=== PATIENT | male | born 1960 | race Asian ===

== ENCOUNTER 2022-12-11 15:57 | Inpatient (IN) | payer OTHER ==
[2022-12-11 17:52] LABS: BASO % 1.1 % (0-2.0); HEMATOCRIT 44.3 % (35.4-49); HEMOGLOBIN 15.2 GM/dL (11.7-16.9); LYMPH % 19.6 % (8-40); MCH 30.2 pg (25.7-33.7); MCHC 34.4 g/dl (32.0-35.9); MEAN CELL VOLUME 87.8 fl (80-96); MEAN PLT VOLUME 7.4 fl (7.5-11.1); MONO % 14.7 % (3.8-10.2); NEUT % 61.6 % (42.8-82.8); PLATELET COUNT 222 10^3/uL (134-434); RBC 5.04 M/mm3 (4.00-5.60); RDW 13.1 % (11.9-15.9); WHITE BLOOD COUNT 7.2 K/mm3 (4.0-10.0)
[2022-12-11 18:02] LABS: INR 1.05 (0.83-1.09); PROTHROMBIN TIME (PATIENT) 12.2 SEC (9.7-13.0)
[2022-12-11 18:05] LABS: ACTIVATED PTT 35.3 SECONDS (25.2-36.5)
[2022-12-11 18:11] LABS: POTASSIUM 3.6 mmol/L (3.5-5.1)
[2022-12-11 18:12] LABS: CALCIUM 8.7 mg/dL (8.5-10.1)
[2022-12-11 18:14] LABS: BLOOD UREA NITROGEN 9.7 mg/dL (7-18)
[2022-12-11 18:16] LABS: CREATININE 0.8 mg/dL (0.55-1.3)
[2022-12-11 18:18] LABS: TOT PROT 7.9 g/dl (6.4-8.2)
[2022-12-11 18:19] LABS: BILIRUBIN,TOTAL 0.6 mg/dL (0.2-1)
[2022-12-11] MEDS ORDERED: ASPIRIN 81 MG CHEWABLE TABLETS PO ONE (18:28)
[2022-12-11] MEDS ORDERED: ASPIRIN 81 MG CHEWABLE TABLETS ONE (18:42)
[2022-12-11] MEDS ORDERED: ATORVASTATIN CA 40 MG TABLET (FP) PO SCH (22:00)
[2022-12-11] MEDS ORDERED: ATORVASTATIN CA 40 MG TABLET (FP) ONE (23:17)
[2022-12-12] MEDS ORDERED: SODIUM CHLORIDE 1,000 ML IV SCH (01:30)
[2022-12-12 07:35] LABS: BASO % 1.3 % (0-2.0); EOS % 5.9 % (0-4.5); HEMATOCRIT 41.6 % (35.4-49); HEMOGLOBIN 14.9 GM/dL (11.7-16.9); LYMPH % 22.1 % (8-40); MCH 31.3 pg (25.7-33.7); MCHC 35.9 g/dl (32.0-35.9); MEAN CELL VOLUME 87.3 fl (80-96); MEAN PLT VOLUME 7.8 fl (7.5-11.1); MONO % 15.8 % (3.8-10.2); NEUT % 54.9 % (42.8-82.8); PLATELET COUNT 206 10^3/uL (134-434); RBC 4.77 M/mm3 (4.00-5.60); RDW 13.2 % (11.9-15.9); WHITE BLOOD COUNT 5.5 K/mm3 (4.0-10.0)
[2022-12-12 07:42] LABS: POTASSIUM 3.4 mmol/L (3.5-5.1)
[2022-12-12 07:45] LABS: BLOOD UREA NITROGEN 12.4 mg/dL (7-18)
[2022-12-12 07:46] LABS: ALBUMIN 3.7 g/dl (3.4-5.0); MAGNESIUM 2.1 mg/dL (1.8-2.4)
[2022-12-12 07:47] LABS: CALCIUM 8.4 mg/dL (8.5-10.1)
[2022-12-12 07:49] LABS: CREATININE 0.8 mg/dL (0.55-1.3)
[2022-12-12 07:50] LABS: PHOSPHOROUS 2.6 mg/dL (2.5-4.9)
[2022-12-12 07:51] LABS: BILIRUBIN,TOTAL 0.8 mg/dL (0.2-1); TOT PROT 7.2 g/dl (6.4-8.2)
[2022-12-12] MEDS: ENOXAPARIN NA (PORCINE) 40 MG/0.4 ML DISP.SYRIN SQ SCH (09:34)
[2022-12-12] MEDS: ASPIRIN 81 MG CHEWABLE TABLETS PO SCH (09:34)
[2022-12-12] MEDS ORDERED: LOSARTAN POTASSIUM 25 MG TABLET PO SCH (10:00)
[2022-12-12] MEDS: CLOPIDOGREL BISULFATE 75 MG TABLET (FP) PO SCH (10:31)
[2022-12-12] MEDS ORDERED: ATORVASTATIN CA 80 MG TABLET (FP) PO ONE (16:54)
[2022-12-12] MEDS: NICOTINE 14 MG/24 HOURS TOPICAL PATCH TD SCH (17:42)
[2022-12-12 17:58] LABS: URINE APPEARANCE CLEAR; URINE BILIRUBIN NEGATIVE (NEGATIVE); URINE COLOR YELLOW; URINE GLUCOSE (UA) NEGATIVE (NEGATIVE); URINE KETONE 1+ (NEGATIVE); URINE LEUK ESTERASE NEGATIVE (NEGATIVE); URINE NITRITE NEGATIVE (NEGATIVE); URINE PROTEIN NEGATIVE (NEGATIVE); URINE UROBILINOGEN 0.2 mg/dL (0.2-1.0)
[2022-12-13 07:25] LABS: HEMATOCRIT 43.8 % (35.4-49); HEMOGLOBIN 15.5 GM/dL (11.7-16.9); MCH 31.2 pg (25.7-33.7); MCHC 35.4 g/dl (32.0-35.9); MEAN CELL VOLUME 88.3 fl (80-96); MEAN PLT VOLUME 7.7 fl (7.5-11.1); PLATELET COUNT 193 10^3/uL (134-434); RBC 4.96 M/mm3 (4.00-5.60); WHITE BLOOD COUNT 5.5 K/mm3 (4.0-10.0)
[2022-12-13 07:38] LABS: POTASSIUM 3.8 mmol/L (3.5-5.1)
[2022-12-13 07:46] LABS: CREATININE 0.8 mg/dL (0.55-1.3); PHOSPHOROUS 2.5 mg/dL (2.5-4.9)
[2022-12-13 07:47] LABS: BLOOD UREA NITROGEN 16.8 mg/dL (7-18)
[2022-12-13 07:48] LABS: BILIRUBIN,TOTAL 0.8 mg/dL (0.2-1); TOT PROT 7.7 g/dl (6.4-8.2)
[2022-12-13 07:49] LABS: CALCIUM 8.6 mg/dL (8.5-10.1)
[2022-12-13 07:50] LABS: MAGNESIUM 2.3 mg/dL (1.8-2.4)
[2022-12-13] MEDS ORDERED: LOSARTAN POTASSIUM 50 MG TABLET PO SCH (08:24)
[2022-12-13] MEDS: NICOTINE 14 MG/24 HOURS TOPICAL PATCH TD SCH (09:08)
[2022-12-13] MEDS: ASPIRIN 81 MG CHEWABLE TABLETS PO SCH (09:08)
[2022-12-13] MEDS: CLOPIDOGREL BISULFATE 75 MG TABLET (FP) PO SCH (09:08)
[2022-12-13] MEDS: ENOXAPARIN NA (PORCINE) 40 MG/0.4 ML DISP.SYRIN SQ SCH (09:08)
[2022-12-13] MEDS ORDERED: REGADENOSON 0.4 MG/5 ML PRE-FILLED SYRINGE IVPUSH ONE ×2 (10:25→11:00)
[2022-12-13 15:15] VITALS: BMI 28.1
[2022-12-13 16:40] VITALS: BP 149/95; PULSE 86; RESP 20; TEMP 98.1
[2022-12-13] MEDS ORDERED: ATORVASTATIN CA 80 MG TABLET (FP) PO SCH (22:00)
== END 2022-12-13 18:44 | disposition home or self-care (01) | DRG 45 ==
LOC: JER 15:57 → EDBD 15:57 → JERBED 17:56 → J4W 12-12 01:46
PROVIDERS: ADMIT Internal Medicine; ATTEND Internal Medicine
DX: I63.89 Other cerebral infarction (principal); R29.702 NIHSS score 2; E78.5 Hyperlipidemia, unspecified; I10 Essential (primary) hypertension; F17.210 Nicotine dependence, cigarettes, uncomplicated; I69.392 Facial weakness following cerebral infarction; E87.6 Hypokalemia; R29.810 Facial weakness; I77.1 Stricture of artery
CPT/HCPCS: 36415; 70450-TC; 70544-TC; 70547-TC; 70551-TC; 71045-TC-FY; 80053; 80061; 81003; 82550; 82553; 82962; 83036; 83735; 84100; 84443; 84484; 85025; 85027; 85610; 85730; 86850; 86900; 86901; 93005; 93010; 93306-TC; 97116-GP; 97161-GP; 99285-25; A9502; C9803-CS; U0003; U0005